=== PATIENT | male | born 1965 | race Caucasian/White ===

== ENCOUNTER → 2023-10-15 06:28 | Day surgery (SDC) | payer OTHER, SELFPAY ==
[2023-10-15 07:58] LABS: Glucose - Point of Care 134 mg/dl (70-99)
== END ==
LOC: GI 06:28
PROVIDERS: ATTENDING PHYSICIAN Internal Medicine Gastroenterology
DX: Z12.11 Encounter for screening for malignant neoplasm of colon (principal); Z86.010 Personal history of colon polyps; K64.8 Other hemorrhoids; K63.5 Polyp of colon
CPT/HCPCS: 45385; 88305; 82962

== ENCOUNTER 2025-01-23 14:05 | Emergency (ER) | payer OTHER, SELFPAY ==
[2025-01-23 14:15] VITALS: BP 119/68
[2025-01-23 14:34] LABS: Hematocrit 44.5 % (39.0-52.0); Hemoglobin 15.3 g/dL (13.0-18.0); Mean Corp Hgb Conc. 34.4 g/dL (33.0-37.0); Mean Corpuscular Volume 86.6 fL (80.0-94.0); Nucleated Red Blood Cells % 0 % (-); Platelet Count 193 10^3/uL (130-400); Red Cell Dist. Width 11.9 % (11.5-14.5)
[2025-01-23 14:49] LABS: ALT (SGPT) 27 U/L (0-50); AST (SGOT) 33 U/L (17-59); Albumin 4.2 g/dl (3.5-5.0); Alkaline Phosphatase 74 U/L (38-126); Blood Urea Nitrogen 20 mg/dl (9-20); Calcium 9.5 mg/dl (8.4-10.2); Carbon Dioxide 22 mmol/L (22-30); Chloride 103 mmol/L (98-107); Glucose 194 mg/dl (70-99); Lipase 71 U/L (23-300); Potassium 4.1 mmol/L (3.5-5.1); Sodium 133 mmol/L (135-145); Total Protein 6.7 g/dl (6.3-8.2); eGFR > 60.00
--- NOTE | 2025-01-23 16:13 | ED.GENMED ---
History of Present Illness
General
Chief Complaint: Abdominal Symptoms
Source: patient and spouse
Exam Limitations: none
Time Seen by Provider: 01/23/25 15:49
Nursing documentation reviewed up to this point in time: agreed with
History of Present Illness
History of Present Illness:
59-year-old male with history of GERD, diabetes who presents to the ER with his for evaluation of fever and diarrhea. Patient reports symptoms started Wednesday and have been constant since that time. He reports fever with shaking chills that he
has been treating with Tylenol. He says he has been having profuse watery brown diarrhea without blood. He does have some associated abdominal cramping. He denies any nausea or vomiting. He denies any URI symptoms. He denies any cough or
shortness of breath. He denies any urinary symptoms. He denies any other complaints. He does note that he was recently in [place] on vacation and was eating seafood including oysters and was swimming in the ocean and he wonders if he may have
caught something. He denies any recent international travel or recent antibiotics. No sick contacts at home.
Review of Systems
Review of Systems
All Other Systems: ROS reviewed and negative except as documented in HPI and ROS
Constitutional: Reports fever, fatigue and chills
Respiratory: Denies cough or trouble breathing
Cardiac: Denies chest pain
ABD/GI: Reports abdominal pain and diarrhea; Denies nausea, vomiting or bloody stools
: Denies dysuria, frequency or flank pain
Musculoskeletal: Reports muscle pain (Achiness/myalgias); Denies neck pain or back pain
Neurological: Denies headache
Phy Exam
Physical Exam
Physical Exam:
General: Awake, alert, oriented x3; no acute distress
Head: Normocephalic, atraumatic
Eyes: Conjunctiva normal, sclera anicteric
Throat: Airway intact, handling secretions
Neck: Trachea midline, supple without meningismus
Lungs: Clear to auscultation bilaterally, no wheezing, rales, rhonchi
Heart: Tachycardia with regular rhythm, no murmurs, gallops, or rubs
Abd: Soft, non distended, nontender
Back: No CVA tenderness
Neuro: Grossly intact
Skin: no rash
Extremities: Warm and well-perfused, no edema in extremities
Scores
Heart Failure Risk
Heart Failure Risk Score: Not Applicable
Heart Score for Chest Pain Patients
STEMI patient?: Not applicable
Withdrawal Assessment of Alcohol
Withdrawal Assessment Completed?: Not applicable
Sepsis
Sepsis Screening
Sepsis Assessment: Sepsis
Sepsis Screen
Sepsis Screen: Sepsis
Date: 01/23/25
Time: 18:59
Course
Orders/Labs/Results
Orders:
Orders
01/23/25 14:22
Complete Blood Count/With Diff Urgent
Comprehensive Metabolic Panel Urgent
Lipase Urgent
01/23/25 15:52
Stool Culture Urgent
ANDRY Source: Feces/Stool
Specimen Description:
Date Specimen was Collected: 01/23/25
Time Specimen was Collected: 16:14
0.9% Sodium Chloride 1000 ml [Nss] 1,000 ml IV BOLUS
Acetaminophen [Tylenol] 1,000 mg PO NOW STA
01/23/25 16:17
CT Abd/pelvis W Iv Cont Urgent
Comment:
Reason For Exam: lower abd pain, fever, diarrhea
01/23/25 16:33
COVID-19 Antigen Urgent
Source: Nasal Swab
Lactate Level [Lactic Acid] Urgent
Blood Culture Q30M
ANDRY Source: Blood/Venous
Specimen Description:
Influenza A+B Rapid Molecular Urgent
ANDRY Source: Nasal Swab
Specimen Description:
01/23/25 16:36
Blood Culture Q30M
ANDRY Source: Blood/Venous
Specimen Description:
01/23/25 19:15
Urinalysis Reflex To Culture Urgent
Date Specimen was Collected: 01/23/25
Time Specimen was Collected: 16:14
Abnormal Lab Results
01/23/25 01/23/25
14:22 19:15
Absolute Lymphs (auto) 0.2 L 10^3/uL
(1.2-3.4)
Neutrophils % 91.4 H %
(42.2-75.2)
Lymphocytes % 3.3 L %
(20.5-51.1)
Sodium 133 L mmol/L
(135-145)
Glucose 194 H mg/dl
(70-99)
Urine Ketones 3+ A
(Negative)
Urine Glucose 4+ A
(Negative)
01/23/25 14:22
01/23/25 14:22
Vital Signs
Initial and Last Documented VS:
Initial Vital Signs
Temp Pulse Resp BP Pulse Ox
38.2 C H 110 20 119/68 94
01/23/25 14:15 01/23/25 14:15 01/23/25 14:15 01/23/25 14:15 01/23/25 14:15
Last Documented Vital Signs
Temp Pulse Resp BP Pulse Ox
36.6 C 78 16 119/68 99
01/23/25 19:17 01/23/25 19:17 01/23/25 19:17 01/23/25 14:15 01/23/25 19:17
MDM/Problems Addressed
Differential Diagnosis Includes:
Enteritis, colitis, diverticulitis
MDM/Problems Addressed:
59-year-old male with history as noted presents for evaluation of diarrhea and fever over the past few days. Vitals and exam as above. Plan to check labs including a CBC and CMP, lactate and blood cultures, COVID and flu swabs. Send stool sample
for culture. Send urinalysis. Will check CT abdomen and pelvis. Monitor closely reassess at the above.
Labs reviewed: CBC shows predominant neutrophils but no other clinically significant abnormalities. CMP shows no significant electrolyte derangements, random glucose 194 in the setting of known diabetes. COVID swab negative. CT shows enteritis
but no other acute abnormalities. Patient's vitals have normalized with fluids and Tylenol. Suspect likely viral enteritis. Patient was not able to provide stool sample here unfortunately. Nothing to suggest at this point that this is bacterial
infectio, we will hold on antibiotics. Stable for discharge with supportive care. Patient comfortable with this plan. Spoke about return precautions in detail and all questions answered.
*Radiology
Radiology exam reviewed: radiology read reviewed
*Pulse Oximetry
SaO2: 94
Oxygen Mode of Delivery: Room air
Patient hypoxic: no (94%)
*Critical Care Note
Total Time (30-74mins, 75-104mins- exclusive of procedures): Not Applicable
Data Reviewed
Source: patient and spouse
ED Attending Note
-
Portions of this chart may have been created with voice recognition software.� Occasional wrong word or��sound alike� substitutions may have occurred due to the inherent limitations of voice recognition software.
Discharge Plan
Departure
Patient Disposition: Home (Routine Discharge)
Date of Disposition: 01/23/25
Time of Disposition: 18:59
Patient with high blood pressure during this ER visit?: No
Discharge Problem:
Enteritis
Instructions: [place] Diet, Diarrhea in adults - ED discharge instructions
Referrals:
NONE,* [Active, Internal Medicine]
Activity Restrictions/Additional Instructions:
Thank you for visiting the Emergency Department at [facility].
1. Please schedule a follow up appointment as directed. Call first thing tomorrow morning to make an appointment.
2. If indicated, please take your medications as instructed and indicated on discharge paperwork.
3. If any of your symptoms do not improve, or persist, or become more severe within 6-12 hours, please return to the emergency department for further care.
4. Please return to the emergency department if you develop a headache, neck pain/stiffness, fever greater than 100.4F, chest pain, shortness of breath, persistent nausea, vomiting, slurred speech, difficulty walking, numbness/tingling, weakness,
signs of infection or any other symptoms that are worrisome to you.
Please call [phone] if you have any questions.
Interventions
Interventions:
*Risk Screen - Suicide Last Done: 01/23/25 14:15
*General Assessment Last Done: 01/23/25 14:15
*Neglect/Abuse Screening Last Done: 01/23/25 14:15
*ED- Fall Risk Assessment Last Done: 01/23/25 18:00
*ED COVID-19 Vaccine History Last Done: 01/23/25 15:56
*Nursing Disposition Last Done: 01/23/25 19:17
[facility]-Aseepn-Wlqvivaxlw Assessment Last Done: 01/23/25 16:05
ED- Neurological Assessment Last Done: 01/23/25 16:05
ED-Skin Assessment Last Done: 01/23/25 16:05
Discharge Date and Time
Discharge Date/Time: 01/23/25 19:17
Print Language: YORUBA
[2025-01-23] MEDS: NSS 1000 IV (16:19)
[2025-01-23] MEDS: TYLENOL 1000 MG PO (16:19)
[2025-01-23 16:59] LABS: COVID-19 Antigen Negative (Negative)
[2025-01-23 19:27] LABS: Urine Character Clear (Clear)
== END 2025-01-23 19:17 | disposition home or self-care (01) ==
LOC: EMR 14:05
PROVIDERS: Emergency Medicine; EMERGENCY PHYSICIAN Emergency Medicine; FAMILY PHYSICIAN Family Medicine
DX: K52.9 Noninfective gastroenteritis and colitis, unspecified (principal); E11.9 Type 2 diabetes mellitus without complications; Z11.52 Encounter for screening for COVID-19
CPT/HCPCS: 96360; 99284; 74177; 80053; 81003; 83605; 83690; 85025; 87040; 87502; 87811; Q9967

== ENCOUNTER → 2025-05-02 08:29 | Outpatient (REF) | payer OTHER, SELFPAY | LOC: RAD 08:29 | PROVIDERS: ATTENDING PHYSICIAN Podiatrist Foot & Ankle Surgery; FAMILY PHYSICIAN Nurse Practitioner | DX: E11.9 Type 2 diabetes mellitus without complications (principal) | CPT/HCPCS: 93923 ==